=== PATIENT | male | born 1980 | race African-American/Black ===

== ENCOUNTER 2023-05-28 15:47 | Emergency (ER) | payer OTHER ==
[2023-05-28] MEDS ORDERED: HYDROcodone/Acetaminophen 5/325 mg Tablet ONE (16:35)
== END 2023-05-28 17:10 | disposition home or self-care (01) ==
LOC: ERS 15:47
DX: M10.042 Idiopathic gout, left hand (principal); F17.210 Nicotine dependence, cigarettes, uncomplicated